=== PATIENT | female | born 1995 | race Caucasian/White ===

== ENCOUNTER → 2020-09-05 | Outpatient (REF) | payer BC ==
[2020-09-05 15:30] LABS: HEMATOCRIT 39.6 % (36.0-47.0); HEMOGLOBIN 13.6 g/dl (12.0-15.5); MEAN CORPUSCULAR HEMOGLOBIN 32.9 pg (27.0-33.0); MEAN CORPUSCULAR HGB CONC 34.3 g/dl (32.0-36.5); MEAN CORPUSCULAR VOLUME 95.9 fl (80.0-96.0); PLATELET COUNT, AUTOMATED 195 10^3/uL (150-450); RED BLOOD COUNT 4.13 10^6/uL (4.00-5.40); WHITE BLOOD COUNT 8.3 10^3/uL (4.0-10.0)
[2020-09-05 16:41] LABS: CHLAMYDIA DNA AMPLIFICATION NEGATIVE (NEGATIVE); GC DNA AMPLIFICATION NEGATIVE (NEGATIVE)
[2020-09-05 16:43] LABS: HEPATITIS C VIRUS ABY INDEX < 0.0 INDEX (<0.8); HIV 1&2 SCREEN CENTAUR NEGATIVE (NEGATIVE)
== END ==
LOC: M PLALAB 13:41
PROVIDERS: ATTEND Specialist
DX: Z34.81 Encounter for supervision of other normal pregnancy, first trimester (principal)

== ENCOUNTER → 2020-10-25 | Outpatient (CLI) | payer BC ==
--- NOTE | 2020-10-25 16:48 | REP ---
INDICATION: ANATOMY. COMPARISON: None. TECHNIQUE: Multiple sonographic images of the gravid uterus. FINDINGS: There is a single intrauterine gestation. position is variable. The placenta is posterior with grade 1 maturity. There is no placenta previa. The umbilical cord inserts centrally onto the placenta. There is a three-vessel cord. Cervix measures 3.1 cm. heart rate is 155 beats per minute. Subjectively the amniotic fluid volume is normal. The composite ultrasound gestational age today is 20 weeks 2 days with an SANG of 03/12/2021. The LMP is unknown. Estimated weight is 347 g/ 0 lb, 12 oz. This is the 16th percentile for 21 weeks 0 days. The following anatomic structures are identified and are unremarkable: Cranium, cavum septum pellucidum, falx, intracranial ventricles, cerebellum, cisterna magna, nuchal fold, facial profile, upper lip, cardiac rhythm, four-chamber heart, cardiac right left ventricular outflow tracts, diaphragm, stomach, abdominal wall, right and left kidneys, bladder, spine, upper lower extremities, upper lower right and left upper extremities, right left lower extremities, 3 vessel cord. The right choroid plexus contains 2-3 cysts measuring up to 4 mm in diameter. IMPRESSION: There are 2 or 3 small right choroid plexus cysts measuring up to 4 mm. Otherwise, there are no anomalies. <Electronically signed by Christopher Coyle > 10/25/20 [id number]
== END ==
LOC: M WHC 12:50
PROVIDERS: ATTEND Advanced Practice Midwife
DX: Z34.02 Encounter for supervision of normal first pregnancy, second trimester (principal); Z3A.20 20 weeks gestation of pregnancy

== ENCOUNTER → 2020-12-05 | Outpatient (REF) | payer BC ==
[2020-12-05 13:39] LABS: HEMATOCRIT 38.2 % (36.0-47.0); HEMOGLOBIN 12.9 g/dl (12.0-15.5); MEAN CORPUSCULAR HEMOGLOBIN 33.5 pg (27.0-33.0); MEAN CORPUSCULAR HGB CONC 33.8 g/dl (32.0-36.5); MEAN CORPUSCULAR VOLUME 99.2 fl (80.0-96.0); PLATELET COUNT, AUTOMATED 166 10^3/uL (150-450); RED BLOOD COUNT 3.85 10^6/uL (4.00-5.40)
== END ==
LOC: M PLALAB 10:45
PROVIDERS: ATTEND Advanced Practice Midwife
DX: Z36.89 Encounter for other specified antenatal screening (principal); Z34.02 Encounter for supervision of normal first pregnancy, second trimester

== ENCOUNTER 2021-03-15 07:34 | Inpatient (IN) | payer BC ==
[~2021-03-15] VITALS: Ht 170.2 cm; Wt 77.9 kg
[2021-03-15] VITALS (13 sets, daily range): BP systolic 119–141; BP diastolic 75–90
[2021-03-15] MEDS ORDERED: PRENTAB9 PO (07:53)
[2021-03-15] MEDS ORDERED: HOME MED LIST COMPLETE! XX SCH (07:55)
[2021-03-15] MEDS: miSOPROStol 50MCG 1/2 TABLET PO SCH ×4 (09:10→22:00)
[2021-03-15 09:22] LABS: HEMATOCRIT 41.5 % (36.0-47.0); HEMOGLOBIN 14.3 g/dl (12.0-15.5); MEAN CORPUSCULAR HGB CONC 34.5 g/dl (32.0-36.5); MEAN CORPUSCULAR VOLUME 95.8 fl (80.0-96.0); PLATELET COUNT, AUTOMATED 164 10^3/uL (150-450); RED BLOOD COUNT 4.33 10^6/uL (4.00-5.40); WHITE BLOOD COUNT 9.2 10^3/uL (4.0-10.0)
--- NOTE | 2021-03-15 10:07 | HPEPDOC ---
Obstetrical History & Physical General Date of Admission Mar 15, 2021 at 07:34 History of Present Illness 25yo G1 at 41w1d presents for IOL. EDC 03/07/21, patient with uncomplicated and ap propriate care. Chief Complaint: Induction of labor Information Provided By: Patient Age: 25 : 1 Care Care: Good Care Dating Final EDC: Mar 07, 2021 Final EDC by: 1st trimester (US) EGA at Admission: 41 Past Medical History Past Obstetrical History : Past Obstetrical History: Primgravida Past Medical History Surgical History: Denies/None Family History Significant Family History: No pertinent family hx Social History Marital Status: Psychosocial History: No pertinent psych hx * Smoker: non-smoker Alcohol: Denies Drugs: denies Allergies Coded Allergies: No Known Allergies (Unverified , 03/15/21) Medications Scheduled No.137/Iron/Folic Acd ( Vitamin Tablet) 1 Each Tablet, 1 TAB PO DAILY Physical Examination Physical Examination GENERAL: Alert and oriented times three. BREAST: . ABDOMEN: Gravid and non-tender to touch. FETUS: Is vertex (VTX) by sterile vaginal examination (SVE), fetus is vertex (VTX) by Shawn. HEART RATE: Regular rate and rhythm. LUNGS: Clear to auscultation (CTA). Vital Signs/I&O Vital Signs Date Time Temp Pulse Resp B/P (MAP) Pulse Ox O2 Delivery O2 Flow Rate FiO2 03/15/21 08:05 97.9 67 18 133/78 (96) Laboratory Data 24[facility] Laboratory Tests 2 03/15/21 07:47: Serology Scanned Report Hepatitis B Testing Pertinent Laboratoy Data Blood Type: A+ RBC Antibody Screen: Negative HIV: Negative Hepatitis B: Negative Hepatitis C: Negative Rapid Plasma Reagin: Nonreactive Rubella: Immune Chlamydia/Gonorrhea: Negative Group B Streptococcus: Negative Anatomy Ultrasound Placenta Location: Posterior Placenta Previa: No Vaginal Examination Dilation: Fingertip Station: -2 Cervical Consistency: Medium Cervical Position: Posterior Presentation: Cephalic presentation Assessment Variability: Moderate Tocometer Contractions: Yes Frequency: irregular Assessment/Plan Assessment 25-year-old 1 at 41 weeks 1 day for induction of labor Reassuring status Plan Admit and orient. Employee Adviser and consent. Diet: Regular. Group B Streptococcus (GBS) negative. Labs and intravenous (IV) per unit protocol. Counseled on Pitocin and induction of labor (IOL). Anticipate normal spontaneous delivery (). C-S as appropriate. ANTONINA MIKE MD. Mar 15, 2021 09:51
[2021-03-16] VITALS (15 sets, daily range): BP systolic 116–171; BP diastolic 69–98
[2021-03-16] MEDS: miSOPROStol 50MCG 1/2 TABLET PO SCH (01:57)
[2021-03-16] MEDS ORDERED: PROMETHAZINE INJ 25 MG/ML VIAL (J2550) IV ONE (02:10)
[2021-03-16] MEDS ORDERED: BUTORPHANOL 2 MG/ML INJ (J0595) IV ONE (02:10)
[2021-03-16] MEDS ORDERED: OXYTOCIN 30 UNITS IN 0.9% NaCl 500ML IV BAG (J2590) As Ordered ONE ×2 (04:47→06:16)
[2021-03-16] MEDS ORDERED: OXYTOCIN DRIP 30 UNITS in IV 1 EA IV SCH ×2 (06:15→10:35)
[2021-03-16] MEDS ORDERED: LIDOCAINE 1% MDV 20ML VIAL INFIL ONE (08:20)
[2021-03-16] MEDS ORDERED: MEASLES,MUMPS,RUBELLA VACCINE INJ (MMR-II) (90707) SC SCH (10:35)
[2021-03-16] MEDS ORDERED: ANUSOL HC CREAM 30GM TOP PRN (10:35)
[2021-03-16] MEDS ORDERED: MOM 30ML SUSPENSION UDC PO PRN (10:35)
[2021-03-16] MEDS ORDERED: DIBUCAINE 1% OINTMENT 30GM TOP PRN (10:35)
[2021-03-16] MEDS ORDERED: RHOGAM 300 MCG (1500 IU) INJ (J2790) IM SCH (10:35)
[2021-03-16] MEDS ORDERED: ACETAMINOPHEN TAB 650MG DOSE (2X325MG) PO PRN (10:35)
[2021-03-16] MEDS ORDERED: ACETAMINOPHEN 500 MG TAB PO PRN (10:35)
[2021-03-16] MEDS ORDERED: METHYLERGONOVINE MALEATE 0.2 MG TAB PO PRN (10:35)
--- NOTE | 2021-03-16 10:39 | DNPDOC ---
[facility] Delivery Note Delivery Note DATE OF DELIVERY: March 16, 2021 TIME OF : 0955 GENDER: Female APGARS: 9 and 9. WEIGHT: 3450 over 7 pounds 10 ounces LACERATIONS: 2MLL ANESTHESIA: None ESTIMATED BLOOD LOSS: 400 ml COUNTS: 5 laparotomy sponges accounted for prior to after delivery. 3 sharps removed from delivery field. DELIVERY NOTE: On March 16, 2021 at 0955 Ms. Abrams is a 25-year-old 1 now para 1 who had a spontaneous vaginal delivery of a liveborn female infant Apgars 04/10/1931 450 g or 7 pounds 10 ounces. Head was delivered occiput anterior (OA). There is a nuchal cord which was manually reduced, followed by delivery of the shoulders and corpus. Infant was handed to mom with a good cry. Cord was clamped times two and was cut by support person under my direction. Placenta was then drained and delivered grossly intact. A premixed bag of 500 mL of normal saline with 30 units of Pitocin was then bolused along with uterine massage until the uterus was firm. On inspection there was a 2MLL that was repaired with 3-0 Vicryl after infusion with 1% lidocaine. On reinspection, cervix, vagina, perineum was grossly intact and hemostatic. Mom and baby in recovery on stable condition. ANTONINA MIKE MD. Mar 16, 2021 10:39
[2021-03-16] MEDS: DOCUSATE SODIUM 100MG CAPSULE PO SCH ×2 (13:38→20:30)
[2021-03-16] MEDS: PRENATAL VITAMINS CHEWABLE TABLET PO SCH (13:38)
[2021-03-16] MEDS: IBUPROFEN 800 MG TAB PO PRN (13:39)
[2021-03-17] MEDS: IBUPROFEN 600MG TAB PO PRN (00:57)
[2021-03-17 06:00] VITALS: BP 102/61
--- NOTE | 2021-03-17 07:32 | IPNPDOC ---
Progress Note Date of Service: Mar 17, 2021 Day#: 1 Progress Note SUBJECT: Doing well without complaints. Ambulating, voiding and pain is well-c ontrolled. Reports minimal lochia. OBJECTIVE: VITAL SIGNS: Within normal limits, afebrile. Alert and oriented times three. Abdomen: Fundus firm at U-2. Soft, NTTP. Ext: neg calf tenderness. ASSESSMENT: day #1 status post . Recovering in stable condition. PLAN: 1. Continue routine care 2. Discharge plans for tomorrow VS, I&O, 24H, Fishbone Vital Signs/I&O Vital Signs Date Time Temp Pulse Resp B/P (MAP) Pulse Ox O2 Delivery O2 Flow Rate FiO2 03/17/21 06:00 98.5 90 16 102/61 (75) 98 Room Air I&O- Last 24 Hours up to 6 AM 03/17/21 05:59 Intake Total 521 ml Output Total 1150 ml Balance -629 ml ANTONINA MIKE MD. Mar 17, 2021 07:32
[2021-03-17] MEDS: DOCUSATE SODIUM 100MG CAPSULE PO SCH ×2 (08:04→22:37)
[2021-03-17] MEDS: PRENATAL VITAMINS CHEWABLE TABLET PO SCH (08:04)
[2021-03-17] MEDS: IBUPROFEN 800 MG TAB PO PRN ×2 (08:05→19:05)
[2021-03-17 18:00] VITALS: BP 132/77
[2021-03-18 05:49] VITALS: BP 139/86
[2021-03-18] MEDS: PRENATAL VITAMINS CHEWABLE TABLET PO SCH (08:14)
[2021-03-18] MEDS: DOCUSATE SODIUM 100MG CAPSULE PO SCH (08:14)
[2021-03-18] MEDS: IBUPROFEN 600MG TAB PO PRN (08:15)
== END 2021-03-18 14:35 | disposition home or self-care (01) | DRG 560 ==
LOC: M LDI 07:34 → M OBS 03-16 12:30
PROVIDERS: ADMIT Obstetrics & Gynecology; ATTEND Obstetrics & Gynecology
PROC: 3E0P7GC Introduction of Other Therapeutic Substance into Female Reproductive, Via Natural or Artificial Opening (ICD-10-PCS; 2021-03-15)
PROC: 10E0XZZ Delivery of Products of Conception, External Approach (ICD-10-PCS; principal; 2021-03-16)
PROC: 0KQM0ZZ Repair Perineum Muscle, Open Approach (ICD-10-PCS; 2021-03-16)
DX: O48.0 Post-term pregnancy (principal); O70.1 Second degree perineal laceration during delivery; Z3A.41 41 weeks gestation of pregnancy; Z37.0 Single live birth

== ENCOUNTER → 2021-11-26 | Outpatient (REF) | payer BC ==
[~2021-11-26] MED LIST: PRENTAB9 PO
== END ==
LOC: M SFHCWAGY 17:23
PROVIDERS: ATTEND Obstetrics & Gynecology
DX: Z01.419 Encounter for gynecological examination (general) (routine) without abnormal findings (principal)

== ENCOUNTER → 2023-05-13 | Outpatient (REF) | payer BC | LOC: M SFHCWAGY 09:51 | PROVIDERS: ATTEND Obstetrics & Gynecology | DX: Z01.419 Encounter for gynecological examination (general) (routine) without abnormal findings (principal); Z12.4 Encounter for screening for malignant neoplasm of cervix; Z77.9 Other contact with and (suspected) exposures hazardous to health ==

== ENCOUNTER → 2025-04-16 | Outpatient (REF) | payer BC | LOC: M PLALAB 14:13 | PROVIDERS: ATTEND Advanced Practice Midwife | DX: Z53.9 Procedure and treatment not carried out, unspecified reason (principal) ==

== ENCOUNTER → 2025-04-30 | Outpatient (CLI) | payer BC ==
[2025-04-30 16:00] LABS: PLATELET COUNT, AUTOMATED 213 10^3/uL (150-450)
[2025-04-30 17:02] LABS: Trichomonas vaginalis (AMP) NOT DETECTED (NEGATIVE)
[2025-04-30 17:04] LABS: HIV 1&2 SCREEN NEGATIVE (NEGATIVE)
[2025-04-30 17:13] LABS: HEPATITIS C VIRUS ABY INDEX < 0.02 INDEX (<0.8)
[2025-04-30 17:25] LABS: GC DNA AMPLIFICATION NEGATIVE (NEGATIVE)
== END ==
LOC: M PLALAB 13:57
PROVIDERS: ATTEND Nurse Practitioner Family
DX: Z34.81 Encounter for supervision of other normal pregnancy, first trimester (principal)

== ENCOUNTER → 2025-05-17 | Outpatient (REF) | payer BC | LOC: M PLALAB 15:33 | PROVIDERS: ATTEND Advanced Practice Midwife | DX: Z34.82 Encounter for supervision of other normal pregnancy, second trimester (principal) ==

== ENCOUNTER → 2025-06-15 | Outpatient (REF) | payer BC | LOC: M SFHCWAGY 13:09 | PROVIDERS: ATTEND Nurse Practitioner Family | DX: R82.90 Unspecified abnormal findings in urine (principal) ==

== ENCOUNTER → 2025-06-21 | Outpatient (CLI) | payer BC | LOC: M WHC 14:19 | PROVIDERS: ATTEND Advanced Practice Midwife | DX: Z34.82 Encounter for supervision of other normal pregnancy, second trimester (principal); Z3A.18 18 weeks gestation of pregnancy ==